=== PATIENT | male | born 1970 | race African-American/Black ===

== ENCOUNTER 2016-12-14 14:16 | Emergency (ER) | payer OTHER ==
[~2016-12-14] VITALS: Ht 182.9 cm; Wt 100.0 kg
[~2016-12-14 14:16] MED LIST: AMBIEN5 MG PO; ANTIVERT 25MG25 MG PO; DOXYCYCLINE 10100 MG PO; MOTRIN800 MG PO; NO HOME MEDICATIONS; NUVIGIL50 MG PO; PHENERGAN 25 TA25 MG PO; TYLENOL 500MG500 MG PO; ZITHROMAX 250M250 MG PO
[2016-12-14 14:22] VITALS: TEMP 98.8
[2016-12-14] MEDS ORDERED: MULTI VITAMINS1 TAB PO (14:24)
[2016-12-14] MEDS ORDERED: MOTRIN 600600 MG/TAB PO (14:25)
[2016-12-14 14:56] LABS: HEMATOCRIT 43.6 % (42.0-52.0); HEMOGLOBIN 14.1 g/dl (13.5-18.0); MEAN CELL VOLUME 85 fl (80.0-100.0); MEAN CORPUSCULAR HEMOGLOBIN 28 pg (27.0-31.0); MEAN CORPUSCULAR HGB CONC 32 g/dl (33.0-37.0); MEAN PLATELET VOLUME 9.9 fl (7.4-10.4); PLATELET COUNT 238 K/mm3 (130-400); RED BLOOD COUNT 5.12 M/mm3 (4.20-5.60); REDCELL DISTRIBUTION WIDTH-CV 11.9 % (11.5-14.5); WHITE BLOOD COUNT 6.6 K/mm3 (4.8-10.8)
[2016-12-14 14:58] LABS: ADD PATHOLOGY DIFF REVIEW NO
[2016-12-14 15:26] LABS: BAND 4 % (0-10); NEUTROPHILS 36 % (42.0-75.2); TOTAL CELLS COUNTED 100
[2016-12-14 15:27] LABS: PLATELET ESTIMATE NORMAL (NORMAL)
[2016-12-14 15:35] LABS: ADJUSTED CALCIUM 9.1 mg/dL (8.4-10.2); ALANINE AMINOTRANSFERASE 33 U/L (21-72); ALBUMIN 4.6 gm/dL (3.5-5.0); ALKALINE PHOSPHATASE 57 U/L (50-136); ANION GAP 14 mmol/L (7-16); BILIRUBIN,TOTAL 0.9 mg/dL (0.0-1.0); BLOOD UREA NITROGEN 16 mg/dL (9-20); CALCIUM 9.6 mg/dL (8.4-10.2); CARBON DIOXIDE 27 mmol/L (22-30); CHLORIDE 100 mmol/L (98-107); CREATINE KINASE 555 U/L (55-170); CREATININE, serum 1.25 mg/dL (0.66-1.25); GLUCOSE 111 mg/dL (74-106); LIPASE 111 U/L (23-300); POTASSIUM 4.4 mmol/L (3.4-5.0); SODIUM 141 mmol/L (137-145); TOTAL PROTEIN 8.4 gm/dL (6.4-8.2)
[2016-12-14 15:54] LABS: B-TYPE NATRIURETIC PEPTIDE < 11 pg/mL (0-125); TROPONIN-I < 0.012 ng/mL (0.000-0.034)
[2016-12-14] MEDS ORDERED: PREDNISONE10 MG PO (16:53)
[2016-12-14] MEDS ORDERED: VALTREX1 GM PO (16:53)
[2016-12-14 17:01] VITALS: BP 140/109; PULSE 89
[2016-12-14] MEDS ORDERED: LACRI-LUBE1 OIN OD (18:18)
== END 2016-12-14 17:08 | disposition home or self-care (01) ==
LOC: COL.ER 14:16
PROVIDERS: Emergency Medicine
DX: G51.0 Bell's palsy (principal); I10 Essential (primary) hypertension
CPT/HCPCS: J7030; J7512

== ENCOUNTER 2017-04-18 10:16 | Emergency (ER) | payer OTHER ==
[~2017-04-18] VITALS: Ht 182.9 cm; Wt 95.0 kg
[~2017-04-18 10:16] MED LIST changes: +LACRI-LUBE1 OIN OD; +MOTRIN 600600 MG/TAB PO; +MULTI VITAMINS1 TAB PO; +PREDNISONE10 MG PO; +VALTREX1 GM PO
[2017-04-18 10:34] VITALS: TEMP 98.1
[2017-04-18 12:56] LABS: PH 5 (5-8); SQUAMOUS EPITHELIAL None Seen /hpf; URINE APPEARANCE Hazy; URINE BACTERIA None Seen /hpf; URINE BILIRUBIN Negative (NEGATIVE); URINE BLOOD Negative (NEGATIVE); URINE COLOR Yellow; URINE GLUCOSE Negative (NEGATIVE); URINE KETONE Negative (NEGATIVE); URINE UROBILINOGEN Negative (NEGATIVE); URINE WBC 0-2 /hpf
[2017-04-18 12:59] LABS: BASO % 0.4 % (0.0-2.0); EOS % 0.7 % (0-4.0); GRAN # 3.4 (1.4-6.5); GRAN % 60.1 % (42.2-75.2); HEMATOCRIT 42.1 % (42.0-52.0); HEMOGLOBIN 13.5 g/dl (13.5-18.0); LYMPH # 1.6 (1.2-3.4); LYMPH % 27.8 % (20.0-51.0); MEAN CELL VOLUME 87 fl (80.0-100.0); MEAN CORPUSCULAR HEMOGLOBIN 28 pg (27.0-31.0); MEAN CORPUSCULAR HGB CONC 32 g/dl (33.0-37.0); MEAN PLATELET VOLUME 9.6 fl (7.4-10.4); MONO # 0.6 (0.1-0.6); MONO % 10.6 % (1.7-9.3); PLATELET COUNT 187 K/mm3 (130-400); RED BLOOD COUNT 4.86 M/mm3 (4.20-5.60); REDCELL DISTRIBUTION WIDTH-CV 11.9 % (11.5-14.5); WHITE BLOOD COUNT 5.6 K/mm3 (4.8-10.8)
[2017-04-18 13:11] LABS: ADJUSTED CALCIUM 8.9 mg/dL (8.4-10.2); ALBUMIN 4.3 gm/dL (3.5-5.0); BILIRUBIN,TOTAL 0.7 mg/dL (0.0-1.0); CALCIUM 9.1 mg/dL (8.4-10.2); CREATININE, serum 0.98 mg/dL (0.66-1.25); POTASSIUM 4.4 mmol/L (3.4-5.0); TOTAL PROTEIN 7.7 gm/dL (6.4-8.2)
[2017-04-18] MEDS ORDERED: CEFTIN500 MG PO (14:49)
[2017-04-18] MEDS ORDERED: NORCO 325 MG-51 TAB PO (14:49)
[2017-04-18 15:03] VITALS: BP 141/103; PULSE 81
== END 2017-04-18 15:03 | disposition home or self-care (01) ==
LOC: COL.ER 10:16
PROVIDERS: Physician Assistant
DX: R10.31 Right lower quadrant pain (principal); R10.11 Right upper quadrant pain; R63.0 Anorexia; R29.898 Other symptoms and signs involving the musculoskeletal system
CPT/HCPCS: J1885; J7030; Q9967

== ENCOUNTER 2019-10-19 13:38 | Emergency (ER) | payer OTHER ==
[~2019-10-19] VITALS: Ht 182.9 cm; Wt 100.0 kg
[~2019-10-19 13:38] MED LIST changes: +CEFTIN500 MG PO; +NORCO 325 MG-51 TAB PO
[2019-10-19 13:46] VITALS: BP 143/91; TEMP 97.6
[2019-10-19 15:32] LABS: COLLECTION METHOD CLEAN CATCH
[2019-10-19] MEDS ORDERED: MEDROL 4MG DOSPA4 MG PO (15:33)
[2019-10-19 15:49] LABS: MUCOUS Present /lpf; PH 5 (5-8); SQUAMOUS EPITHELIAL None Seen /hpf; URINE APPEARANCE Clear; URINE BACTERIA None Seen /hpf; URINE BILIRUBIN Negative (NEGATIVE); URINE BLOOD 2+ (NEGATIVE); URINE COLOR Yellow; URINE GLUCOSE Negative (NEGATIVE); URINE KETONE Negative (NEGATIVE); URINE LEUKOCYTE ESTERASE Negative (NEGATIVE); URINE NITRATE Negative (NEGATIVE); URINE PROTEIN(semi-quant) Negative (NEGATIVE); URINE UROBILINOGEN Negative (NEGATIVE)
[2019-10-19 16:40] VITALS: PULSE 82
== END 2019-10-19 16:40 | disposition home or self-care (01) ==
LOC: COL.ER 13:38
PROVIDERS: Family Medicine
DX: M54.12 Radiculopathy, cervical region (principal); R31.9 Hematuria, unspecified

== ENCOUNTER 2020-12-04 14:26 | Emergency (ER) | payer OTHER ==
[~2020-12-04] VITALS: Ht 182.9 cm; Wt 102.3 kg
[~2020-12-04 14:26] MED LIST changes: +MEDROL 4MG DOSPA4 MG PO
[2020-12-04 15:04] LABS: BASO % 0.5 % (0.0-2.0); EOS # 0.2 (0.0-0.7); EOS % 2.9 % (0-4.0); GRAN % 48.7 % (42.2-75.2); HEMATOCRIT 42.3 % (42.0-52.0); INR 1.1 (0.8-3.0); LYMPH # 2.3 (1.2-3.4); MEAN CELL VOLUME 84 fl (80.0-100.0); MEAN CORPUSCULAR HEMOGLOBIN 28 pg (27.0-31.0); MEAN CORPUSCULAR HGB CONC 33 g/dl (33.0-37.0); MEAN PLATELET VOLUME 9.7 fl (7.4-10.4); MONO # 0.6 (0.1-0.6); MONO % 9.6 % (1.7-9.3); PLATELET COUNT 219 K/mm3 (130-400); PROTHROMBIN TIME 12.5 SECONDS (9.7-12.8); RED BLOOD COUNT 5.01 M/mm3 (4.20-5.60); REDCELL DISTRIBUTION WIDTH-CV 12.2 % (11.5-14.5)
[2020-12-04 15:06] LABS: PARTIAL THROMBOPLASTIN TIME 32.5 SECONDS (26.0-37.0)
[2020-12-04 15:07] LABS: ALANINE AMINOTRANSFERASE 37 U/L (4-49); ALBUMIN 4.5 gm/dL (3.5-5.0); ALKALINE PHOSPHATASE 58 U/L (50-136); ANION GAP 10 mmol/L (7-16); AST,SGOT 32 U/L (15-37); BILIRUBIN,TOTAL 0.3 mg/dL (0.0-1.0); BLOOD UREA NITROGEN 13 mg/dL (9-20); CALCIUM 9.5 mg/dL (8.4-10.2); CARBON DIOXIDE 23 mmol/L (22-30); CHLORIDE 104 mmol/L (98-107); CREATININE, serum 1.16 (0.66-1.25); GLUCOSE 135 mg/dL (74-106); POTASSIUM 3.8 mmol/L (3.4-5.0); SODIUM 137 mmol/L (137-145); TOTAL PROTEIN 8.1 gm/dL (6.4-8.2)
[2020-12-04 15:19] LABS: TROPONIN-I < 0.012 ng/mL (0.000-0.035)
[2020-12-04 18:03] VITALS: BP 134/93; PULSE 73; TEMP 98.8
== END 2020-12-04 17:46 | disposition home or self-care (01) ==
LOC: COL.ER 14:26
PROVIDERS: Family Medicine
DX: R07.9 Chest pain, unspecified (principal); Z86.79 Personal history of other diseases of the circulatory system; Z88.8 Allergy status to other drugs, medicaments and biological substances

== ENCOUNTER 2021-07-09 15:22 | Emergency (ER) | payer OTHER ==
[~2021-07-09] VITALS: Ht 182.9 cm; Wt 102.7 kg
[2021-07-09 15:36] VITALS: TEMP 98.8
[2021-07-09 16:04] LABS: BASO # 0.1 K/mm3 (0.0-0.2); BASO % 0.7 % (0.0-2.0); EOS # 0.2 K/mm3 (0.0-0.7); GRAN # 3.4 K/mm3 (1.4-6.5); GRAN % 45.7 % (42.2-75.2); HEMATOCRIT 45.1 % (42.0-52.0); HEMOGLOBIN 15.1 g/dl (13.5-18.0); LYMPH # 2.9 K/mm3 (1.2-3.4); LYMPH % 39.3 % (20.0-51.0); MEAN CELL VOLUME 83 fl (80.0-100.0); MEAN CORPUSCULAR HEMOGLOBIN 28 pg (27.0-31.0); MEAN CORPUSCULAR HGB CONC 34 g/dl (33.0-37.0); MEAN PLATELET VOLUME 9.3 fl (7.4-10.4); MONO # 0.8 K/mm3 (0.1-0.6); MONO % 11.2 % (1.7-9.3); PLATELET COUNT 257 K/mm3 (130-400); RED BLOOD COUNT 5.46 M/mm3 (4.20-5.60); REDCELL DISTRIBUTION WIDTH-CV 12.2 % (11.5-14.5)
[2021-07-09 16:18] LABS: ALANINE AMINOTRANSFERASE 26 U/L (0-55); ALBUMIN 4.2 gm/dL (3.5-5.0); ALKALINE PHOSPHATASE 63 U/L (40-150); ANION GAP 11 mmol/L (7-16); AST,SGOT 21 U/L (5-34); BILIRUBIN,TOTAL 0.3 mg/dL (0.2-1.2); BLOOD UREA NITROGEN 11 mg/dL (8-26); CALCIUM 9.6 mg/dL (8.4-10.2); CARBON DIOXIDE 24 mmol/L (22-29); CHLORIDE 103 mmol/L (98-107); GLUCOSE 94 mg/dL (70-99); POTASSIUM 3.8 mmol/L (3.5-4.5); SODIUM 138 mmol/L (136-145); TOTAL PROTEIN 8.5 gm/dL (6.2-8.1)
[2021-07-09 16:19] LABS: TROPONIN-I < 0.010 ng/mL (0.00-0.033)
[2021-07-09 17:17] VITALS: BP 154/111; PULSE 93
== END 2021-07-09 17:20 | disposition home or self-care (01) ==
LOC: COL.ER 15:22
PROVIDERS: Student in an Organized Health Care Education/Training Program
DX: R07.9 Chest pain, unspecified (principal)

== ENCOUNTER 2022-11-08 09:27 | Emergency (ER) | payer OTHER ==
[~2022-11-08] VITALS: Ht 182.9 cm; Wt 102.3 kg
[2022-11-08 09:35] VITALS: TEMP 98.4
[2022-11-08 11:01] LABS: BASO % 0.6 % (0.0-2.0); EOS # 0.1 K/mm3 (0.0-0.7); EOS % 1.4 % (0.0-4.0); GRAN # 4.4 K/mm3 (1.4-6.5); GRAN % 62.3 % (42.2-75.2); HEMATOCRIT 43.8 % (42.0-52.0); HEMOGLOBIN 14.3 g/dl (13.5-18.0); LYMPH # 1.8 K/mm3 (1.2-3.4); LYMPH % 25.8 % (20.0-51.0); MEAN CELL VOLUME 84 fl (80.0-100.0); MEAN CORPUSCULAR HEMOGLOBIN 27 pg (27-31); MEAN CORPUSCULAR HGB CONC 33 g/dl (33.0-37.0); MEAN PLATELET VOLUME 9.6 fl (7.4-10.4); MONO # 0.7 K/mm3 (0.1-0.6); MONO % 9.6 % (1.7-9.3); PLATELET COUNT 227 K/mm3 (130-400); RED BLOOD COUNT 5.23 M/mm3 (4.20-5.60); REDCELL DISTRIBUTION WIDTH-CV 11.8 % (11.5-14.5)
[2022-11-08 11:15] LABS: ALANINE AMINOTRANSFERASE 136 U/L (0-55); ALBUMIN 3.6 gm/dL (3.5-5.0); ALKALINE PHOSPHATASE 55 U/L (40-150); ANION GAP 10 mmol/L (7-16); AST,SGOT 194 U/L (5-34); BILIRUBIN,TOTAL 0.5 mg/dL (0.2-1.2); BLOOD UREA NITROGEN 11 mg/dL (8-26); CALCIUM 9.5 mg/dL (8.4-10.2); CARBON DIOXIDE 24 mmol/L (22-29); CHLORIDE 104 mmol/L (98-107); CREATININE, serum 1.08 mg/dL (0.72-1.25); GLUCOSE 136 mg/dL (70-99); POTASSIUM 3.9 mmol/L (3.5-4.5); SODIUM 138 mmol/L (136-145); TOTAL PROTEIN 7.5 gm/dL (6.2-8.1)
[2022-11-08 11:23] LABS: TROPONIN-I < 0.010 ng/mL (0.00-0.033)
[2022-11-08] MEDS ORDERED: XARELTO STARTER20 MG PO (12:55)
[2022-11-08 13:10] VITALS: BP 162/113; PULSE 90
== END 2022-11-08 13:30 | disposition home or self-care (01) ==
LOC: COL.ER 09:27
PROVIDERS: Emergency Medicine
DX: I26.99 Other pulmonary embolism without acute cor pulmonale (principal); R79.1 Abnormal coagulation profile; Z20.822 Contact with and (suspected) exposure to COVID-19
CPT/HCPCS: Q9967